=== PATIENT | female | born 1960 | race Caucasian/White ===

== ENCOUNTER 2022-07-04 14:21 | Emergency (ER) | payer SELFPAY ==
[2022-07-04] MEDS ORDERED: Lidocaine 1% w/Epinephrine 1:100K 20 ML VIAL ONE (17:09)
== END 2022-07-04 18:06 | disposition home or self-care (01) ==
LOC: ERS 14:21
DX: R22.42 Localized swelling, mass and lump, left lower limb (principal); F17.210 Nicotine dependence, cigarettes, uncomplicated
CPT/HCPCS: 88304